=== PATIENT | male | born 1990 | race Caucasian/White ===

== ENCOUNTER 2016-12-25 18:23 | Emergency (ER) | payer OTHER, MEDICAID ==
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
[2016-12-25 18:51] VITALS: BP 139/97
[2016-12-25] MEDS ORDERED: Acetaminophen/HYDROcodone 325-10 MG Tab PO ONE (19:16)
[2016-12-25] MEDS ORDERED: Ketorolac 30 MG/ML SDV IM ONE (19:16)
== END 2016-12-25 21:09 | disposition home or self-care (01) ==
LOC: VM.ED 18:23
DX: M25.512 Pain in left shoulder (principal); Z88.8 Allergy status to other drugs, medicaments and biological substances; V09.9XXA Pedestrian injured in unspecified transport accident, initial encounter
CPT/HCPCS: 70450; 71250; 73010; 74176; 96372; 99284; A9270; J1885